=== PATIENT | female | born 1955 | race Caucasian/White ===

== ENCOUNTER 2018-01-08 23:05 | Observation (INO) | payer OTHER ==
[2018-01-09 00:27] LABS: ADD MAN DIFF? NO
[2018-01-09 00:29] LABS: WHITE BLOOD COUNT 6.7 10^3/ul (4.8-10.8)
[2018-01-09 00:30] LABS: BASOPHILS % 0.4 % (0.0-2.0); EOSINOPHILS # 0.1 10^3/ul (0.0-0.5); EOSINOPHILS % 1.2 % (0.0-7.0); HEMATOCRIT 40.4 % (37.0-47.0); HEMOGLOBIN 13.3 g/dl (12.0-16.0); LYMPHOCYTES # 2.2 10^3/ul (0.8-2.9); LYMPHOCYTES % 32.7 % (15.0-51.0); MEAN CORPUSCULAR HEMOGLOBIN 28.5 pg (29.0-33.0); MEAN CORPUSCULAR HGB CONC 32.9 g/dl (32.0-37.0); MEAN CORPUSCULAR VOLUME 86.7 fl (82.0-101.0); MEAN PLATELET VOLUME 9.6 fl (7.4-10.4); MONOCYTE # 0.4 10^3/ul (0.3-0.9); MONOCYTES % 6.1 % (0.0-11.0); NEUTROPHILS % 59.5 % (39.0-77.0); PLATELET COUNT 286 10^3/UL (140-415); RED BLOOD COUNT 4.66 10^6/ul (4.20-5.40); RED CELL DISTRIBUTION WIDTH 12.3 % (11.5-14.5)
[2018-01-09 00:47] LABS: ALANINE AMINOTRANSFERASE 36 IU/L (13-69); ALBUMIN/GLOBULIN RATIO 1.17; ALKALINE PHOSPHATASE 85 IU/L (42-121); ANION GAP 11 (8-16); ASPARTATE AMINO TRANSFERASE 25 IU/L (15-46); BILIRUBIN,INDIRECT 0.1 mg/dl (0-1.1); BILIRUBIN,TOTAL 0.1 mg/dl (0.2-1.3); BLOOD UREA NITROGEN 11 mg/dl (7-20); CALCIUM 9.2 mg/dl (8.4-10.2); CARBON DIOXIDE 30 mmol/L (21-31); CHLORIDE 102 mmol/L (97-110); CREATININE 0.68 mg/dl (0.44-1.00); GLUCOSE 95 mg/dl (70-220); POTASSIUM 4.4 mmol/L (3.5-5.1); SODIUM 139 mmol/L (135-144); TOTAL PROTEIN 7.4 g/dl (6.1-8.1)
[2018-01-09 01:00] LABS: B-TYPE NATRIURETIC PEPTIDE 51 PG/ML (0-125); TROPONIN-I < 0.012 ng/ml (0.000-0.120)
[2018-01-09] MEDS ORDERED: NACL 0.9% 3 ML SYG IV (02:30)
[2018-01-09] MEDS ORDERED: ALBUTEROL 18 GM INHALER INH (02:30)
[2018-01-09] MEDS ORDERED: ACETAMINOPHEN 325 MG TAB PO (02:30)
[2018-01-09] MEDS ORDERED: DOCUSATE SODIUM 100 MG CAP PO (02:30)
[2018-01-09] MEDS ORDERED: BISACODYL (EC) 5 MG TAB PO (02:30)
[2018-01-09] MEDS: ONDANSETRON 4 MG INJ IV ×2 (02:57→13:16)
[2018-01-09] MEDS: morphine 4 MG/ML VIAL IV (03:09)
[2018-01-09] MEDS: DIAZEPAM 5 MG/ML SYG IV ×2 (04:20→06:40)
[2018-01-09 06:31] LABS: CREATINE KINASE 72 IU/L (23-200)
[2018-01-09 06:32] LABS: CHOL/HDL RATIO 3.2 RATIO; CHOLESTEROL 166 mg/dl (100-200); HDL CHOLESTEROL 51 mg/dl (35-98); LDL CHOLESTEROL,CALCULATED 84 mg/dl; TRIGLYCERIDES 156 mg/dl (0-149)
[2018-01-09 06:32] LABS: MAGNESIUM 1.8 mg/dl (1.7-2.5)
[2018-01-09 06:34] LABS: CK INDEX 1.3; CK-MB 0.94 ng/ml (0.0-2.4); TROPONIN-I < 0.012 ng/ml (0.000-0.120)
[2018-01-09 06:51] LABS: HEMOGLOBIN A1C 5.4 % (0-5.9)
[2018-01-09] MEDS ORDERED: ALBUTEROL HFA 8 GM INHALER INH (07:30)
[2018-01-09] MEDS: morphine 2 MG INJ IV ×3 (08:06→14:43)
[2018-01-09] MEDS: ASPIRIN 81 MG TAB PO (08:06)
[2018-01-09] MEDS: THYROID 60 MG TAB PO (08:06)
[2018-01-09] MEDS: NITROGLYCERIN (SL) 0.4 MG TAB SL (12:52)
[2018-01-09 13:12] LABS: CREATINE KINASE 59 IU/L (23-200)
[2018-01-09 13:26] LABS: CK-MB 0.58 ng/ml (0.0-2.4); TROPONIN-I < 0.012 ng/ml (0.000-0.120)
[2018-01-09] MEDS: IBUPROFEN 200 MG TAB PO ×2 (14:51→21:00)
[2018-01-09] MEDS: morphine LIQ (10 MG/5 ML) CUP PO (19:53)
[2018-01-09] MEDS: MONTELUKAST 10 MG TAB PO (20:02)
[2018-01-09] MEDS: FISH OIL 1,000 MG CAP PO (20:03)
[2018-01-10] MEDS: IBUPROFEN 200 MG TAB PO ×3 (03:00→16:00)
[2018-01-10 07:06] LABS: ADD MAN DIFF? NO
[2018-01-10 07:13] LABS: BASOPHILS % 0.6 % (0.0-2.0); EOSINOPHILS # 0.2 10^3/ul (0.0-0.5); EOSINOPHILS % 2.9 % (0.0-7.0); HEMATOCRIT 40.9 % (37.0-47.0); HEMOGLOBIN 13.4 g/dl (12.0-16.0); LYMPHOCYTES # 3.5 10^3/ul (0.8-2.9); LYMPHOCYTES % 52.4 % (15.0-51.0); MEAN CORPUSCULAR HEMOGLOBIN 28.5 pg (29.0-33.0); MEAN CORPUSCULAR HGB CONC 32.8 g/dl (32.0-37.0); MEAN PLATELET VOLUME 9.8 fl (7.4-10.4); MONOCYTE # 0.5 10^3/ul (0.3-0.9); MONOCYTES % 7.1 % (0.0-11.0); NEUTROPHIL # 2.4 10^3/ul (1.6-7.5); NEUTROPHILS % 36.8 % (39.0-77.0); PLATELET COUNT 261 10^3/UL (140-415); RED CELL DISTRIBUTION WIDTH 12.5 % (11.5-14.5)
[2018-01-10 07:13] LABS: WHITE BLOOD COUNT 6.6 10^3/ul (4.8-10.8)
[2018-01-10 07:52] LABS: ALANINE AMINOTRANSFERASE 30 IU/L (13-69); ALBUMIN 3.4 g/dl (3.3-4.9); ALBUMIN/GLOBULIN RATIO 1.21; ALKALINE PHOSPHATASE 64 IU/L (42-121); ANION GAP 11 (8-16); ASPARTATE AMINO TRANSFERASE 25 IU/L (15-46); BILIRUBIN,INDIRECT 0.3 mg/dl (0-1.1); BILIRUBIN,TOTAL 0.3 mg/dl (0.2-1.3); BLOOD UREA NITROGEN 11 mg/dl (7-20); CALCIUM 8.8 mg/dl (8.4-10.2); CARBON DIOXIDE 30 mmol/L (21-31); CHLORIDE 101 mmol/L (97-110); CREATININE 0.75 mg/dl (0.44-1.00); GLUCOSE 80 mg/dl (70-220); POTASSIUM 4.4 mmol/L (3.5-5.1); SODIUM 138 mmol/L (135-144); TOTAL PROTEIN 6.2 g/dl (6.1-8.1)
[2018-01-10] MEDS: ASPIRIN 81 MG TAB PO (09:22)
[2018-01-10] MEDS: FISH OIL 1,000 MG CAP PO (09:22)
[2018-01-10] MEDS: THYROID 60 MG TAB PO (09:22)
== END 2018-01-10 17:40 | disposition home or self-care (01) ==
LOC: E/R 23:05 → TEL 01-09 01:57
DX: R07.89 Other chest pain (principal); J45.909 Unspecified asthma, uncomplicated; E03.9 Hypothyroidism, unspecified; Z79.82 Long term (current) use of aspirin
CPT/HCPCS: 36415; 71045; 80053; 80061; 82306; 82550; 82553; 82607; 82652; 83036; 83735; 83880; 84443; 84484; 85025; 93005; 93306; 99285-25; G0378

== ENCOUNTER 2018-06-25 17:14 | Emergency (ER) | payer OTHER ==
[2018-06-25 20:20] LABS: ADD MAN DIFF? NO
[2018-06-25 20:21] LABS: BASOPHILS % 0.3 % (0.0-2.0); HEMATOCRIT 39.6 % (37.0-47.0); HEMOGLOBIN 13.1 g/dl (12.0-16.0); LYMPHOCYTES # 2.1 10^3/ul (0.8-2.9); LYMPHOCYTES % 18.8 % (15.0-51.0); MEAN CORPUSCULAR HEMOGLOBIN 28.6 pg (29.0-33.0); MEAN CORPUSCULAR HGB CONC 33.1 g/dl (32.0-37.0); MEAN CORPUSCULAR VOLUME 86.5 fl (82.0-101.0); MONOCYTE # 0.2 10^3/ul (0.3-0.9); MONOCYTES % 1.8 % (0.0-11.0); NEUTROPHIL # 8.6 10^3/ul (1.6-7.5); NEUTROPHILS % 77.9 % (39.0-77.0); PLATELET COUNT 419 10^3/UL (140-415); RED BLOOD COUNT 4.58 10^6/ul (4.20-5.40); RED CELL DISTRIBUTION WIDTH 12.5 % (11.5-14.5)
[2018-06-25] MEDS: SOD CHLORIDE 0.9% 1,000 ML IV (20:59)
[2018-06-25 21:00] LABS: ANION GAP 12 (5-13); BLOOD UREA NITROGEN 18 mg/dl (7-20); CALCIUM 9.5 mg/dl (8.4-10.2); CARBON DIOXIDE 27 mmol/L (21-31); CHLORIDE 100 mmol/L (97-110); CREATININE 0.74 mg/dl (0.44-1.00); Estimated GFR > 60 mL/min (>60); GLUCOSE 157 mg/dl (70-220); SODIUM 139 mmol/L (135-144)
[2018-06-25] MEDS: KETOROLAC 30 MG INJ IV (21:00)
[2018-06-25] MEDS: METHYLPREDNISOLONE 125 MG INJ IV (21:01)
[2018-06-25] MEDS: LEVALBUTEROL (NEB) 1.25 MG/0.5 ML AMP INH (21:06)
[2018-06-25] MEDS: IPRATROPIUM (NEB) 0.5 MG/2.5 ML AMP INH (21:06)
[2018-06-25 21:11] LABS: TROPONIN-I < 0.012 ng/ml (0.000-0.120)
[2018-06-25 23:18] LABS: URINE PH (Dip) POC 7.5 (5.0-8.5)
[2018-06-25 23:18] LABS: URINE BLOOD (Dip) POC Negative (NEGATIVE); URINE GLUCOSE (Dip) POC Negative (NEGATIVE); URINE KETONES (Dip) POC Negative (NEGATIVE); URINE LEUKOCYTE EST (Dip) POC Negative (NEGATIVE); URINE NITRITE (Dip) POC Negative (NEGATIVE); URINE TOTAL PROTEIN POC Negative (NEGATIVE)
== END 2018-06-26 00:15 | disposition home or self-care (01) ==
LOC: E/R 06-26 00:15
DX: J45.901 Unspecified asthma with (acute) exacerbation (principal); K64.4 Residual hemorrhoidal skin tags; E03.9 Hypothyroidism, unspecified; R07.89 Other chest pain; Z79.82 Long term (current) use of aspirin
CPT/HCPCS: 36415; 71045; 80048; 81003; 81025; 84484; 85025; 93005; 94644; 96361; 96374; 96375; 99285-25

== ENCOUNTER 2018-12-03 00:50 | Inpatient (IN) | payer OTHER ==
[2018-12-03] MEDS: SOD CHLORIDE 0.9% 500 ML IV (02:02)
[2018-12-03] MEDS: morphine 4 MG/ML VIAL IV (02:02)
[2018-12-03] MEDS: ONDANSETRON 4 MG INJ IV ×2 (02:02→04:32)
[2018-12-03 02:09] LABS: ADD MAN DIFF? NO
[2018-12-03 02:10] LABS: ABNORMAL IP MESSAGE 1; BASOPHILS % 0.3 % (0.0-2.0); EOSINOPHILS % 0.3 % (0.0-7.0); HEMATOCRIT 41.9 % (37.0-47.0); HEMOGLOBIN 14.1 g/dl (12.0-16.0); LYMPHOCYTES # 6.5 10^3/ul (0.8-2.9); LYMPHOCYTES % 54.8 % (15.0-51.0); MEAN CORPUSCULAR HEMOGLOBIN 28.7 pg (29.0-33.0); MEAN CORPUSCULAR HGB CONC 33.7 g/dl (32.0-37.0); MEAN CORPUSCULAR VOLUME 85.3 fl (82.0-101.0); MEAN PLATELET VOLUME 9.9 fl (7.4-10.4); MONOCYTE # 0.7 10^3/ul (0.3-0.9); MONOCYTES % 6.3 % (0.0-11.0); NEUTROPHIL # 4.5 10^3/ul (1.6-7.5); PLATELET COUNT 341 10^3/UL (140-415); RED BLOOD COUNT 4.91 10^6/ul (4.20-5.40); RED CELL DISTRIBUTION WIDTH 12.5 % (11.5-14.5)
[2018-12-03 02:10] LABS: WHITE BLOOD COUNT 11.8 10^3/ul (4.8-10.8)
[2018-12-03 02:17] LABS: ALANINE AMINOTRANSFERASE 36 IU/L (13-69); ALBUMIN 4.1 g/dl (3.3-4.9); ALBUMIN/GLOBULIN RATIO 1.36; ALKALINE PHOSPHATASE 74 IU/L (42-121); ANION GAP 10 (5-13); ASPARTATE AMINO TRANSFERASE 23 IU/L (15-46); BILIRUBIN,INDIRECT 0.2 mg/dl (0-1.1); BILIRUBIN,TOTAL 0.2 mg/dl (0.2-1.3); BLOOD UREA NITROGEN 21 mg/dl (7-20); CALCIUM 9.5 mg/dl (8.4-10.2); CARBON DIOXIDE 30 mmol/L (21-31); CHLORIDE 95 mmol/L (97-110); CREATININE 0.79 mg/dl (0.44-1.00); Estimated GFR > 60 mL/min (>60); GLUCOSE 111 mg/dl (70-220); LIPASE 66 U/L (23-300); POTASSIUM 3.2 mmol/L (3.5-5.1); SODIUM 135 mmol/L (135-144); TOTAL PROTEIN 7.1 g/dl (6.1-8.1)
[2018-12-03 02:29] LABS: TROPONIN-I < 0.012 ng/ml (0.000-0.120)
[2018-12-03 02:39] LABS: POSITIVE DIFF @See below
[2018-12-03] MEDS: HYDROmorphONE 0.5 MG/0.5 ML SYG IV (02:58)
[2018-12-03] MEDS ORDERED: NALOXONE (0.4 MG/ML) INJ (03:14)
[2018-12-03] MEDS: LORAZEPAM 2 MG INJ IV (04:30)
[2018-12-03] MEDS ORDERED: ONDANSETRON 4 MG INJ IV (04:30)
[2018-12-03] MEDS ORDERED: ACETAMINOPHEN 325 MG TAB PO (04:30)
[2018-12-03] MEDS ORDERED: NACL 0.9% 3 ML SYG IV (07:30)
[2018-12-03] MEDS ORDERED: LORAZEPAM 2 MG INJ IV (07:30)
[2018-12-03] MEDS: THYROID 60 MG TAB PO (09:00)
[2018-12-03] MEDS: ASPIRIN 81 MG TAB PO (09:00)
[2018-12-03] MEDS: HEPARIN 5,000 UNIT/1 ML VIAL SC ×2 (10:47→21:40)
[2018-12-03] MEDS: POTASSIUM CHLORIDE (SR) 20 MEQ TAB PO (12:52)
[2018-12-03] MEDS: ACETAMINOPHEN 325 MG TAB PO ×2 (13:59→22:30)
[2018-12-03] MEDS: SUCRALFATE (100 MG/ML) 10ML CUP PO ×2 (16:11→21:32)
[2018-12-03] MEDS: morphine 2 MG INJ IV (16:12)
[2018-12-03] MEDS: PANTOPRAZOLE 40 MG INJ IV (17:16)
[2018-12-03] MEDS: ALBUTEROL/IPRATROPIUM (NEB) 3 ML AMP HHN (22:38)
[2018-12-04] MEDS: PANTOPRAZOLE 40 MG INJ IV ×2 (06:17→18:27)
[2018-12-04] MEDS: SUCRALFATE (100 MG/ML) 10ML CUP PO ×5 (08:16→21:29)
[2018-12-04] MEDS: LORATADINE/PSEUDOEPHED (SR) TAB PO (08:16)
[2018-12-04] MEDS: ASPIRIN 81 MG TAB PO (08:16)
[2018-12-04] MEDS: THYROID 60 MG TAB PO (08:16)
[2018-12-04 08:21] LABS: ADD MAN DIFF? NO
[2018-12-04 08:30] LABS: BASOPHILS % 0.3 % (0.0-2.0); EOSINOPHILS # 0.1 10^3/ul (0.0-0.5); EOSINOPHILS % 0.5 % (0.0-7.0); HEMATOCRIT 42.7 % (37.0-47.0); HEMOGLOBIN 13.8 g/dl (12.0-16.0); LYMPHOCYTES % 26.7 % (15.0-51.0); MEAN CORPUSCULAR HEMOGLOBIN 28.5 pg (29.0-33.0); MEAN CORPUSCULAR HGB CONC 32.3 g/dl (32.0-37.0); MEAN CORPUSCULAR VOLUME 88.2 fl (82.0-101.0); MEAN PLATELET VOLUME 9.8 fl (7.4-10.4); MONOCYTE # 1.1 10^3/ul (0.3-0.9); MONOCYTES % 10.3 % (0.0-11.0); NEUTROPHIL # 6.9 10^3/ul (1.6-7.5); NEUTROPHILS % 61.7 % (39.0-77.0); PLATELET COUNT 334 10^3/UL (140-415); RED BLOOD COUNT 4.84 10^6/ul (4.20-5.40); RED CELL DISTRIBUTION WIDTH 13.3 % (11.5-14.5)
[2018-12-04 08:30] LABS: WHITE BLOOD COUNT 11.1 10^3/ul (4.8-10.8)
[2018-12-04 08:44] LABS: HEMOGLOBIN A1C 5.2 % (0-5.9)
[2018-12-04 08:58] LABS: ALANINE AMINOTRANSFERASE 39 IU/L (13-69); ALBUMIN 3.5 g/dl (3.3-4.9); ALKALINE PHOSPHATASE 67 IU/L (42-121); ANION GAP 5 (5-13); ASPARTATE AMINO TRANSFERASE 33 IU/L (15-46); BILIRUBIN,INDIRECT 0.7 mg/dl (0-1.1); BILIRUBIN,TOTAL 0.7 mg/dl (0.2-1.3); BLOOD UREA NITROGEN 12 mg/dl (7-20); CALCIUM 8.8 mg/dl (8.4-10.2); CARBON DIOXIDE 33 mmol/L (21-31); CHLORIDE 96 mmol/L (97-110); CREATININE 0.75 mg/dl (0.44-1.00); Estimated GFR > 60 mL/min (>60); GLUCOSE 92 mg/dl (70-220); MAGNESIUM 2.1 mg/dl (1.7-2.5); POTASSIUM 4.2 mmol/L (3.5-5.1); SODIUM 134 mmol/L (135-144); TOTAL PROTEIN 6.4 g/dl (6.1-8.1)
[2018-12-04 09:27] LABS: THYROID STIMULATING HORMONE 0.995 MIU/L (0.465-4.680)
[2018-12-04] MEDS ORDERED: ONDANSETRON 4 MG INJ IV (16:30)
[2018-12-04] MEDS ORDERED: PROVENTIL HFA 6.7GM INHALER (16:37)
[2018-12-04] MEDS: LIDOCAINE 2% (SDV) 5 ML INJ (16:55)
[2018-12-04] MEDS: PROPOFOL 20 ML (16:55)
[2018-12-04] MEDS: PHENYLephrine (100 MCG/ML) 10ML SYG (17:38)
[2018-12-04] MEDS: FLUCONAZOLE 100 MG TAB PO (18:27)
[2018-12-05] MEDS: PANTOPRAZOLE 40 MG INJ IV (06:13)
[2018-12-05 07:21] LABS: ADD MAN DIFF? NO
[2018-12-05 07:29] LABS: WHITE BLOOD COUNT 10.7 10^3/ul (4.8-10.8)
[2018-12-05 07:29] LABS: BASOPHILS % 0.3 % (0.0-2.0); EOSINOPHILS # 0.1 10^3/ul (0.0-0.5); EOSINOPHILS % 1.3 % (0.0-7.0); HEMATOCRIT 38.9 % (37.0-47.0); HEMOGLOBIN 12.5 g/dl (12.0-16.0); LYMPHOCYTES # 2.1 10^3/ul (0.8-2.9); LYMPHOCYTES % 19.9 % (15.0-51.0); MEAN CORPUSCULAR HEMOGLOBIN 28.4 pg (29.0-33.0); MEAN CORPUSCULAR HGB CONC 32.1 g/dl (32.0-37.0); MEAN CORPUSCULAR VOLUME 88.4 fl (82.0-101.0); MEAN PLATELET VOLUME 9.5 fl (7.4-10.4); MONOCYTES % 9.1 % (0.0-11.0); NEUTROPHIL # 7.3 10^3/ul (1.6-7.5); NEUTROPHILS % 68.9 % (39.0-77.0); PLATELET COUNT 286 10^3/UL (140-415); RED CELL DISTRIBUTION WIDTH 13.4 % (11.5-14.5)
[2018-12-05 07:45] LABS: ANION GAP 5 (5-13); BLOOD UREA NITROGEN 12 mg/dl (7-20); CALCIUM 8.8 mg/dl (8.4-10.2); CARBON DIOXIDE 30 mmol/L (21-31); CHLORIDE 100 mmol/L (97-110); CREATININE 0.75 mg/dl (0.44-1.00); Estimated GFR > 60 mL/min (>60); GLUCOSE 97 mg/dl (70-220); SODIUM 135 mmol/L (135-144)
[2018-12-05] MEDS: FLUCONAZOLE 100 MG TAB PO (08:48)
[2018-12-05] MEDS: THYROID 60 MG TAB PO (08:48)
[2018-12-05] MEDS: SUCRALFATE (100 MG/ML) 10ML CUP PO ×3 (08:48→16:01)
[2018-12-05] MEDS: ASPIRIN 81 MG TAB PO (08:48)
[2018-12-05 10:22] LABS: ADD UMIC NO; UR ASCORBIC ACID NEGATIVE (NEGATIVE); UR BILIRUBIN (Dip) NEGATIVE (NEGATIVE); UR BLOOD (Dip) NEGATIVE (NEGATIVE); UR CLARITY CLEAR (CLEAR); UR COLOR YELLOW (YELLOW); UR GLUCOSE (Dip) NEGATIVE (NEGATIVE); UR KETONES (Dip) TRACE mg/dL (NEGATIVE); UR LEUKOCYTE ESTERASE (Dip) NEGATIVE Leu/ul (NEGATIVE); UR NITRITE (Dip) NEGATIVE (NEGATIVE); UR SPECIFIC GRAVITY (Dip) 1.006 (1.003-1.030); UR TOTAL PROTEIN (Dip) NEGATIVE (NEGATIVE); UR UROBILINOGEN (Dip) NEGATIVE (NEGATIVE)
[2018-12-05 10:37] LABS: AMPHETAMINE/METHAMPHETAMINE Negative (NEGATIVE); BARBITURATES Negative (NEGATIVE); BENZODIAZEPINES Negative (NEGATIVE); CANNABINOIDS Negative (NEGATIVE); COCAINE Negative (NEGATIVE); OPIATES Negative (NEGATIVE)
[2018-12-05] MEDS: SUMATRIPTAN 25 MG TAB PO (11:51)
[2018-12-05] MEDS: morphine 2 MG INJ IV (11:56)
[2018-12-05 12:58] LABS: HIV 1&2 ANTIBODY NEGATIVE (NEGATIVE)
[2018-12-05] MEDS ORDERED: ACET/BUTAL/CAFF TAB PO (14:00)
[2018-12-05] MEDS: ONDANSETRON 4 MG INJ IV (14:19)
[2018-12-05] MEDS ORDERED: MAGNESIUM HYDROXIDE 30ML CUP PO (16:00)
[2018-12-05] MEDS: BISACODYL (EC) 5 MG TAB PO (16:01)
[2018-12-05] MEDS ORDERED: TOPIRAMATE 25 MG TAB PO (21:00)
== END 2018-12-05 16:45 | disposition home or self-care (01) | DRG 370 ==
LOC: E/R 00:50 → TEL 04:29
PROC: 0DB58ZX Excision of Esophagus, Via Natural or Artificial Opening Endoscopic, Diagnostic (ICD-10-PCS; principal; 2018-12-04 15:13)
PROC: 0DB68ZX Excision of Stomach, Via Natural or Artificial Opening Endoscopic, Diagnostic (ICD-10-PCS; 2018-12-04 15:13)
DX: B37.81 Candidal esophagitis (principal); I16.0 Hypertensive urgency; R56.9 Unspecified convulsions; E03.9 Hypothyroidism, unspecified; I10 Essential (primary) hypertension; J45.909 Unspecified asthma, uncomplicated; K29.70 Gastritis, unspecified, without bleeding; R51 Headache; Z79.82 Long term (current) use of aspirin; Z79.1 Long term (current) use of non-steroidal anti-inflammatories (NSAID)
CPT/HCPCS: 36415; 70450; 70551; 71045; 74176; 80048; 80053; 80307; 81003; 83036; 83690; 83735; 84100; 84443; 84484; 85025; 86703; 88305; 88313; 92610; 93005; 93880; 94664; 95819; 96374; 96375; 97161; 99285-25